=== PATIENT | male | born 1935 | race Caucasian/White ===

== ENCOUNTER 2019-10-01 09:47 | Emergency (ER) | payer MEDICARE, OTHER ==
[2019-10-02 11:41] LABS: SARS-CoV-2 MS2 Positive; SARS-CoV-2 N Gene Negative; SARS-CoV-2 S Gene Negative; SARS-CoV-2 by NAA Not Detected (NotDetected); SARS-CoV-2 orf1ab Negative
== END 2019-10-01 10:04 | disposition home or self-care (01) ==
LOC: ERS 09:47
DX: R05 Cough (principal); Z20.828 Contact with and (suspected) exposure to other viral communicable diseases; M48.00 Spinal stenosis, site unspecified; E11.9 Type 2 diabetes mellitus without complications; I10 Essential (primary) hypertension; Z86.73 Personal history of transient ischemic attack (TIA), and cerebral infarction without residual deficits
CPT/HCPCS: 87635; 99283; U0003